=== PATIENT | male | born 1960 | race Caucasian/White ===

== ENCOUNTER 2017-02-25 17:18 | Emergency (ER) | payer OTHER ==
[~2017-02-25] VITALS: Ht 177.8 cm; Wt 107.4 kg
[~2017-02-25 17:18] MED LIST: ADVIL,NUPRIN,M200 MG PO; ASPIRIN81 M2 PO; ATORVASTATIN CA80 MG PO; BACTRIM,SEPT1 TABLET PO; BACTROBAN OINTM22 GM TP; CHILDREN'S ASPI81 M1 PO; CLOPIDOGREL75 MG PO; Ecotrin PO; GLUCOPHAGE500 MG PO; Glucophage PO; KEFLEX500 MG PO; LEVEMIR FL100 UNIT/1 SC; LOPRESSOR25 MG PO; NITROSTAT0.4 MG SL; PEPTO BISMOL240 ML PO; PRILOSEC; PRILOSEC20 MG PO; PROTONIX40 MG PO; Pravachol PO; ROXICODONE5 MG PO; Tricor PO; VICODIN 5-3001 EACH PO; ZANTAC75 M1 PO
[2017-02-25] MEDS ORDERED: LEVEMIR FL100 UNIT/1 SC (17:56)
[2017-02-25 18:08] LABS: HEMATOCRIT 51.4 % (38.0-50.0); MCH 29.2 PG (29.0-34.0); MCHC 33.5 G/DL (30.0-36.0); MCV 87.3 FL (86-99); MEAN PLAT.VOLUME 9.8 uM^3 (9.0-12.4); PLATELET COUNT 274 K/uL (156-360); RBC DIS.WIDTH-CV 13.4 % (11.8-14.6); RBC DIS.WIDTH-SD 42.7 % (39-53); RED BLOOD COUNT 5.89 M/uL (4.00-5.50); WHITE BLOOD COUNT 13.6 K/uL (4.1-10.2)
[2017-02-25 18:22] LABS: CHLORIDE 105 mEq/L (99-109); POTASSIUM 4.2 mEq/L (3.7-5.4); SODIUM 141 mEq/L (136-147)
[2017-02-25 18:23] LABS: GLUCOSE 155 mg/dL (70-99)
[2017-02-25 18:25] LABS: ANION GAP 10 MEQ/L (2-14)
[2017-02-25 18:27] LABS: GFR ESTIMATE (CALCULATED) > 59 mL/min/
[2017-02-25 18:28] LABS: UREA NITROGEN (BUN) 16 mg/dL (9-23)
[2017-02-25] MEDS ORDERED: SALINE NASAL SP30 ML NS (22:41)
[2017-02-25 22:55] VITALS: BP 130/78
== END 2017-02-25 22:57 | disposition home or self-care (01) ==
LOC: EME 17:18
DX: E86.0 Dehydration (principal); H53.8 Other visual disturbances; R09.81 Nasal congestion; R51 Headache; R42 Dizziness and giddiness; E11.9 Type 2 diabetes mellitus without complications; Z79.4 Long term (current) use of insulin; Z79.82 Long term (current) use of aspirin; F17.200 Nicotine dependence, unspecified, uncomplicated
CPT/HCPCS: 70450; 71020; 80048; 85027; 93005; 99281; 99285; J7030

== ENCOUNTER → 2017-10-28 | Outpatient (CLI) | payer OTHER ==
[~2017-10-28] MED LIST changes: +GLUCOTROL5 MG PO; +MUSCLE RELAXER PO; +NEURONTIN100 MG PO; +SALINE NASAL SP30 ML NS
[2017-10-28 14:55] LABS: INTER. NORMALIZED RATIO 1.2
[2017-10-28 15:45] LABS: ALBUMIN 3.2 G/DL (3.2-4.8); ALT (GPT) 367 IU/L (3-49); CHLORIDE 97 MEQ/L (99-109); CREATININE 1.2 MG/DL (0.6-1.3); DIRECT BILIRUBIN 12.8 mg/dL (0.0-0.3); GFR ESTIMATE (CALCULATED) > 59 mL/min/ (58.99-99999); GLUCOSE 222 mg/dL (70-99); IRON 327 MCG/DL (35-150); POTASSIUM 4.3 MEQ/L (3.7-5.4); SODIUM 132 MEQ/L (136-147); TOTAL BILIRUBIN 17.9 MG/DL (0.0-1.0); TOTAL PROTEIN 5.5 G/DL (6.4-8.3); UREA NITROGEN (BUN) 19 mg/dL (9-23)
[2017-10-28 16:12] LABS: ALKALINE PHOSPHATASE 198 IU/L (3-129); AST (GOT) 134 IU/L (2-34)
[2017-10-30 14:50] LABS: IgG Subclass 4 (QD) 37.5 mg/dL (4.0-86.0)
== END | disposition home or self-care (01) ==
LOC: AMB 11:18
PROVIDERS: Internal Medicine Gastroenterology
PROC: 0FB24ZX Excision of Left Lobe Liver, Percutaneous Endoscopic Approach, Diagnostic (ICD-10-PCS; principal; 2017-10-28)
DX: R17 Unspecified jaundice (principal); R74.8 Abnormal levels of other serum enzymes; Z90.49 Acquired absence of other specified parts of digestive tract
CPT/HCPCS: 80053; 82103 90; 82248; 82390; 82787 90; 82948; 83540; 85610; 86038; 86645 90; 86664; 86665; 88307; 88313; 93005; C1726; G0480; J2250; J3010